=== PATIENT | female | born 1960 | race Two or more races ===

== ENCOUNTER 2021-10-12 14:46 | Emergency (ER) | payer MEDICAID ==
[~2021-10-12] VITALS: Ht 165.1 cm; Wt 67.1 kg
[2021-10-12 17:30] VITALS: BP 124/70
== END 2021-10-12 18:00 | disposition home or self-care (01) ==
LOC: ER 14:46
DX: R51.9 Headache, unspecified (principal); K21.9 Gastro-esophageal reflux disease without esophagitis; R42 Dizziness and giddiness; Z86.69 Personal history of other diseases of the nervous system and sense organs
CPT/HCPCS: 70450